=== PATIENT | female | born 1930 | race Caucasian/White ===

== ENCOUNTER 2017-02-20 04:52 | Emergency (ER) | payer OTHER ==
[~2017-02-20] VITALS: Ht 157.5 cm; Wt 70.6 kg
[2017-02-20] MEDS ORDERED: RAMIPRIL5 MG PO (05:42)
[2017-02-20] MEDS ORDERED: PRAVASTATIN SOD20 MG PO (05:42)
[2017-02-20 05:43] LABS: CHLORIDE 90 mEq/L (99-109); POTASSIUM 4.2 mEq/L (3.7-5.4); SODIUM 123 mEq/L (136-147)
[2017-02-20] MEDS ORDERED: LEVOTHYROXINE50 MCG PO (05:43)
[2017-02-20] MEDS ORDERED: HYDROCODON-ACE1 EAC7 PO (05:44)
[2017-02-20 05:45] LABS: GLUCOSE 154 mg/dL (70-99)
[2017-02-20 05:46] LABS: ANION GAP 12 MEQ/L (2-14)
[2017-02-20 05:48] LABS: GFR ESTIMATE (CALCULATED) > 59 mL/min/
[2017-02-20 05:49] LABS: UREA NITROGEN (BUN) 10 mg/dL (9-23)
[2017-02-20 05:57] LABS: HEMATOCRIT 38.7 % (36.0-46.0); MCH 30.7 PG (29.0-34.0); MCHC 34.1 G/DL (30.0-36.0); MEAN PLAT.VOLUME 9.6 uM^3 (9.5-12.4); PLATELET COUNT 255 K/uL (156-360); RBC DIS.WIDTH-CV 13.2 % (11.8-14.6); RBC DIS.WIDTH-SD 43.7 % (39-53)
[2017-02-20 06:19] LABS: ADD MIUA? YES; BILIRUBIN NEGATIVE; BLOOD NEGATIVE; COLOR STRAW ((YELLOW)); GLUCOSE (STRIP) 50; KETONES NEGATIVE; LEUKOCYTES NEGATIVE; NITRITE NEGATIVE; PROTEIN (STRIP) >=500; SPECIFIC GRAVITY 1.009 (1.000-1.030); UROBILINOGEN 0.2 MG/DL (0.2-1.0)
[2017-02-20 06:33] LABS: BACTERIA NONE SEEN /HPF; EPITHELIAL CELLS RARE /HPF; MUCUS NONE SEEN /LPF; RED BLOOD CELLS 0-5 /HPF (0-5); UCUL ADDED? NO; WHITE BLOOD CELLS 0-5 /HPF (0-5)
[2017-02-20 06:48] LABS: TOTAL BILIRUBIN 0.6 mg/dL (0.0-1.0)
[2017-02-20 06:50] LABS: ALKALINE PHOSPHATASE 69 IU/L (3-129)
[2017-02-20 06:52] LABS: DIRECT BILIRUBIN 0.2 mg/dL (0.0-0.3)
[2017-02-20 06:53] LABS: LIPASE 29 U/L (1.0-51.0)
[2017-02-20 06:54] LABS: TROP-I INTERPRETATION NEGATIVE; TROPONIN-I 0.02 ng/mL (0.0-0.30)
[2017-02-20 08:36] VITALS: BP 148/71
== END 2017-02-20 08:56 | disposition home or self-care (01) ==
LOC: EME 04:52
PROVIDERS: Emergency Medicine
DX: R11.2 Nausea with vomiting, unspecified (principal); I10 Essential (primary) hypertension
CPT/HCPCS: 74177; 80048; 80076; 81003; 83605; 83690; 84484; 85027; 99281; 99285; J2405; J7030

== ENCOUNTER 2017-04-05 06:21 | Emergency (ER) | payer OTHER ==
[~2017-04-05] VITALS: Ht 162.6 cm; Wt 68.2 kg
[~2017-04-05 06:21] MED LIST: HYDROCODON-ACE1 EAC7 PO; LEVOTHYROXINE50 MCG PO; PRAVASTATIN SOD20 MG PO; RAMIPRIL5 MG PO
[2017-04-05 06:58] LABS: EOSINOPHIL (%) 0.4 % (0-5); HEMATOCRIT 41.7 % (36.0-46.0); IMMATURE GRANULOCYTE (%) 0.2 % (0.0-0.7); INSTRUMENT ABS NEUTROPHIL CT 5.2 K/uL; LYMPHOCYTE COUNT 2.4 K/uL (1.0-2.8); MCH 30.9 PG (29.0-34.0); MCHC 34.1 G/DL (30.0-36.0); MCV 90.7 FL (83-99); MEAN PLAT.VOLUME 8.9 uM^3 (9.5-12.4); MONOCYTE (%) 6.5 % (3-12); MONOCYTE COUNT 0.5 K/uL (0-0.8); NEUTROPHIL (%) 63.8 % (45-76); NEUTROPHIL COUNT 5.2 K/uL (1.8-6.4); PLATELET COUNT 269 K/uL (156-360); RBC DIS.WIDTH-CV 13.5 % (11.8-14.6); RBC DIS.WIDTH-SD 45.3 % (39-53); WHITE BLOOD COUNT 8.1 K/uL (4.1-10.2)
[2017-04-05 07:24] LABS: ANION GAP 8 MEQ/L (2-14); CHLORIDE 94 MEQ/L (99-109); POTASSIUM 4.5 MEQ/L (3.7-5.4); SAMPLE HEMOLYSIS CHECK 0; SAMPLE ICTERIC CHECK 0; SAMPLE LIPEMIA CHECK 0; SODIUM 127 MEQ/L (136-147)
[2017-04-05 07:29] LABS: GFR ESTIMATE (CALCULATED) > 59 mL/min/; GLUCOSE 133 mg/dL (70-99); UREA NITROGEN (BUN) 12 mg/dL (9-23)
[2017-04-05 08:42] VITALS: BP 152/89
== END 2017-04-05 08:43 | disposition home or self-care (01) ==
LOC: EME 06:21
PROVIDERS: Emergency Medicine
DX: E87.1 Hypo-osmolality and hyponatremia (principal); I10 Essential (primary) hypertension; Z53.20 Procedure and treatment not carried out because of patient's decision for unspecified reasons
CPT/HCPCS: 80048; 85025; 93005; 99281; 99285; J2405; J7030